=== PATIENT | male | born 1935 | race Caucasian/White ===

== ENCOUNTER 2022-07-12 13:57 | Emergency (ER) | payer MEDICARE, BC ==
[~2022-07-12] VITALS: Ht 175.6 cm; Wt 78.9 kg
--- NOTE | 2022-07-12 14:31 | ED GU-Male ---
General Chief Complaint: - Reproductive Stated Complaint: PROSTATE Nursing Triage Note: has been unable to urinate since this am in small amounts, states bladder has been feeling really full since this am. History of Present Illness Date Seen by Provider: Jul 12, 2022 Time Seen by Provider: 14:20 Initial Comments 86 year old male presents for inability to void fully since this A.M. He has been driving from [place] to [place] today, only fluid intake was a cup of juice and 1 coffee. Reports voiding a small amount at 12:30 pm. Fills like bladder is full and he is unable to empty. Bladder scan demonstrated 147 ml. Denies abdominal or flank pain. No recent history of incontinence or retention, previous surgery for BPH, no prostate Cancer. Timing/Duration: this morning Severity/Quality: mild Radiation: none Associated Symptoms: denies symptoms Allergies and Home Medications Allergies Coded Allergies: No Known Drug Allergies (Unverified , 07/12/22) Patient Home Medication List Home Medication List Reviewed: Yes Ciprofloxacin HCl (Ciprofloxacin HCl) 500 Mg Tablet, 500 MG PO BID Prescribed by: SAMMY GUTIERREZ on 07/12/22 1528 Review of Systems Review of Systems Constitutional: no symptoms reported, see HPI Genitourinary: see HPI, other (urinary retention) All Other Systemes Reviewed Negative Unless Noted: Yes Past Rbgmqrx-Dybhyx-Evsmay Hx Patient Social History Tobacco Use?: No Use of E-Cig and/or Vaping dev: No Substance use?: No Alcohol Use?: Yes Pt feels they are or have been: No Immunizations Up To Date Influenza Vaccine Up-to-Date: Yes; Up-to-Date First/Initial COVID19 Vaccinat: 2020 COVID19 Vaccine [employer] Supervisor: [email or web address] Past Medical History Surgery/Hospitalization HX: htn Family Medical History Reviewed Nursing Family Hx Physical Exam Vital Signs Vital Signs - First Documented 07/12/22 14:13 Temp 37.2 Pulse 80 Resp 18 B/P (MAP) 199/96 (130) Pulse Ox 96 O2 Delivery Room Air Capillary Refill : Less Than 3 Seconds Height, Weight, BMI Height: '" Weight: lbs. oz. kg; 25.00 BMI Method: General Appearance: WD/WN, no apparent distress Cardiovascular: normal peripheral pulses, regular rate, rhythm Respiratory: chest non-tender, lungs clear, normal breath sounds Gastrointestinal: normal bowel sounds, non tender, soft, distended Neurologic/Psychiatric: no motor/sensory deficits, alert, normal mood/affect, oriented x 3 Progress/Results/Core Measures Suspected Sepsis SIRS Temperature: Pulse: 80 Respiratory Rate: 18 Blood Pressure 199 /96 Mean: 130 Results/Orders Lab Results Laboratory Tests Test 07/12/22 14:35 Range/Units Urine Color YELLOW Urine Clarity CLEAR Urine pH 6.0 5-9 Urine Specific [place] 1.025 H 1.016-1.022 Urine Protein 1+ H NEGATIVE Urine Glucose (UA) NEGATIVE NEGATIVE Urine Ketones NEGATIVE NEGATIVE Urine Nitrite NEGATIVE NEGATIVE Urine Bilirubin NEGATIVE NEGATIVE Urine Urobilinogen 0.2 < = 1.0 MG/DL Urine Leukocyte Esterase TRACE H NEGATIVE Urine RBC (Auto) 2+ H NEGATIVE Urine RBC 5-10 H /HPF Urine WBC 2-5 /HPF Urine Squamous Epithelial Cells 0-2 /HPF Urine Renal Epithelial Cells NONE /HPF Urine Crystals NONE /LPF Urine Bacteria NEGATIVE /HPF Urine Casts NONE /LPF Urine Mucus NEGATIVE /LPF Urine Culture Indicated YES My Orders Orders - SAMMY GUTIERREZ Catheter(Urinary) Insert & Ass 03,15 (07/12/22 14:43) Lidocaine 2% (Urojet) (Xylocaine Urojet) (07/12/22 14:45) Ua Culture If Indicated (07/12/22 14:48) Urine Culture (07/12/22 14:35) Catheter(Uri) To Dependent Prema (07/12/22 15:19) Medications Given in ED Current Medications Medications Dose Ordered Sig/Adriana Route Start Time Stop Time Status Last Admin Dose Admin Lidocaine HCl 10 ml ONCE ONCE TOP 07/12/22 14:45 07/12/22 14:46 DC 07/12/22 15:24 10 ML Vital Signs/I&O 07/12/22 07/12/22 14:13 15:45 Temp 37.2 Pulse 80 80 Resp 18 18 B/P (MAP) 199/96 (130) 199/96 Pulse Ox 96 96 O2 Delivery Room Air Room Air Capillary Refill : Less Than 3 Seconds Blood Pressure Mean: 130 Progress Note : Time: 14:20 Progress Note Bladder scan 147, patient voided approximately 50 mls. Post void scan showed > 500 ml in bladder. 1500 recommended escalera, patient attempted to void with no output. He requests escalera with leg bag. 1530 escalera inserted, immediate return of 600 mls. Strained all urine, no stones noted. Patient education on leg bag and follow up with PCP when he returns home to [place]. Discharge instructions and return precautions reviewed. All questions answered Departure Impression Primary Impression: Urinary retention Disposition: HOME, SELF-CARE Condition: Improved Departure-Patient Inst. Decision time for Depature: 15:20 Referrals: NO,LOCAL PHYSICIAN (PCP/Family) Primary Care Physician Patient Instructions: How to Care for Your Escalera Catheter, Male, Urinary Retention Add. Discharge Instructions: Empty your Escalera every 4-6 hours or as needed. Increase water intake, 16 ounces every 2-3 hours while awake. Continue taking your home medication, especially the Flomax (Tamsulosin). Follow up with your Primary Care Doctor on Monday to assess removing the escalera and your urinary retention. Return to the emergency dept for new, urgent healthcare problems. All discharge instructions reviewed with patient and/or family. Voiced understanding. Scripts Ciprofloxacin HCl (Ciprofloxacin HCl) 500 Mg Tablet 500 MG PO BID, #10 TAB 0 Refills Prov: SAMMY GUTIERREZ 07/12/22 SAMMY GUTIERREZ Jul 12, 2022 14:31
[2022-07-12] MEDS ORDERED: LIDOCAINE UROJET 2% GEL 10 ML PKG TOP ONE (14:45)
[2022-07-12 14:54] LABS: BILIRUBIN,URINE NEGATIVE (NEGATIVE); CLARITY,URINE CLEAR; COLOR,URINE YELLOW; GLUCOSE, URINE (UA) NEGATIVE (NEGATIVE); KETONES,URINE NEGATIVE (NEGATIVE); LEUKOCYTE ESTERASE ,URINE TRACE (NEGATIVE); NITRITE,URINE NEGATIVE (NEGATIVE); PROTEIN,URINE 1+ (NEGATIVE)
[2022-07-12 15:04] LABS: BACTERIA,URINE NEGATIVE /HPF; SQUAMOUS EPITHELIAL CELL,UR 0-2 /HPF
[2022-07-12] MEDS ORDERED: CIPR500T5 PO (15:28)
[2022-07-12 15:45] VITALS: BP 199/96
== END 2022-07-12 15:45 | disposition home or self-care (01) ==
LOC: ER 14:00
DX: R33.9 Retention of urine, unspecified (principal); Z87.438 Personal history of other diseases of male genital organs
CPT/HCPCS: 51702; 81000; 87088